=== PATIENT | male | born 1985 | race Caucasian/White ===

== ENCOUNTER 2017-05-06 01:08 | Emergency (ER) | payer MEDICAID ==
[~2017-05-06] VITALS: Ht 182.9 cm; Wt 95.3 kg
[2017-05-06 01:23] VITALS: BP 164/89
[2017-05-06] MEDS ORDERED: IBUPROFEN 800 MG TAB PO ONE (01:30)
[2017-05-06 01:42] LABS: Basophils # (auto) 0 uL; Basophils % (auto) 0.1 % (0.0-2.0); CONDITION Y; DEFINITIVE SEE PRINTOUT; Eosinophils # (auto) 0 uL; Hematocrit 41.3 % (41.0-53.0); Hemoglobin 13.3 g/dL (13.5-17.5); Lymphocytes # (auto) 0.6 uL; Mean Corpuscular Hemoglobin 25.7 pg (28.0-32.0); Mean Corpuscular Hgb Conc. 32.2 g/dL (32.0-36.0); Mean Corpuscular Volume 79.6 fL (80.0-100.0); Mean Platelet Volume 11.9 fL (7.4-10.4); Monocytes # (auto) 0.3 uL; Monocytes % (auto) 2.1 % (0.0-12.0); Neutrophils # (auto) 15.2 uL; Neutrophils % (auto) 93.8 % (37.0-80.0); Platelet Count (auto) 179 10^3/uL (140-450); Red Cell Distribution Width 14.4 % (11.6-16.0); SUSPECT SEE PRINTOUT; White Blood Cell 16.2 10^3/uL (4.4-10.8)
[2017-05-06 01:56] LABS: INR 1.05 (0.9-1.15); Partial Thromboplastin Time 28.6 sec (22.64-33.71); Prothrombin Time 11.4 sec (9.37-12.3)
[2017-05-06 02:01] LABS: Albumin 3.7 g/dL (3.4-5.0); Calcium 8.3 mg/dL (8.5-10.1); Potassium 3.7 mmol/L (3.5-5.1)
[2017-05-06 02:04] LABS: Bilirubin, Total 0.3 mg/dL (0.2-1.0); Total Protein 7.4 g/dL (6.4-8.2)
== END 2017-05-06 03:42 | disposition left against medical advice (07) ==
LOC: ER 01:12
DX: S61.202A Unspecified open wound of right middle finger without damage to nail, initial encounter (principal); S61.200A Unspecified open wound of right index finger without damage to nail, initial encounter; Z53.21 Procedure and treatment not carried out due to patient leaving prior to being seen by health care provider; W54.0XXA Bitten by dog, initial encounter; Y93.89 Activity, other specified; Y99.8 Other external cause status; Y92.89 Other specified places as the place of occurrence of the external cause
CPT/HCPCS: 36415; 80053; 85025; 85610; 85730

== ENCOUNTER 2017-05-11 05:32 | Emergency (ER) | payer MEDICAID ==
[~2017-05-11] VITALS: Ht 182.9 cm; Wt 97.5 kg
[2017-05-11 05:50] VITALS: BP 133/85
== END 2017-05-11 09:02 | disposition left against medical advice (07) ==
LOC: ER 05:32
DX: S61.451A Open bite of right hand, initial encounter (principal); Z53.21 Procedure and treatment not carried out due to patient leaving prior to being seen by health care provider; W54.0XXA Bitten by dog, initial encounter; Y93.89 Activity, other specified; Y92.89 Other specified places as the place of occurrence of the external cause; Y99.8 Other external cause status

== ENCOUNTER 2024-06-02 05:21 | Emergency (ER) | payer MEDICAID ==
[~2024-06-02] VITALS: Ht 182.9 cm; Wt 72.4 kg
[~2024-06-02 05:21] MED LIST: METF-370 PO
[2024-06-02 06:45] VITALS: TEMP 97.6
[2024-06-02] MEDS: SODIUM CHLORIDE 0.9% 1,000 ML IV ONE ×2 (07:00→07:38)
[2024-06-02 07:20] VITALS: BP 157/57; PULSE 89; RESP 16; O2SAT 95
[2024-06-02 07:26] LABS: Chloride 98 mmol/L (98-107); Potassium 4.2 mmol/L (3.5-5.1); Sodium 128 mmol/L (136-145)
[2024-06-02 07:27] LABS: Anion Gap 7 (5-15); Carbon Dioxide 23 mmol/L (20-30)
[2024-06-02 07:28] LABS: Calcium 9.2 mg/dL (8.7-10.4)
[2024-06-02 07:30] LABS: Eosinophils # (auto) 0 10 ^3/uL (0-0.8); Hemoglobin 12.8 g/dL (13.5-17.5); Mean Corpuscular Volume 79.4 fL (80.0-100.0); Monocytes # (auto) 0.5 10 ^3/uL (0-1.3); Monocytes % (auto) 7.1 % (0.0-12.0); Neutrophils # (auto) 5.2 10 ^3/uL (1.6-8.6); Nucleated Red Blood Cells % 0.1 %
[2024-06-02 07:32] LABS: BUN/Creatinine Ratio 8.7 (10.0-20.0); Blood Urea Nitrogen 13 mg/dL (9-23)
[2024-06-02 07:33] LABS: Basophils # (auto) 0 10 ^3/uL (0-0.2); Basophils % (auto) 0.6 % (0.0-2.0); Eosinophils % (auto) 0.5 % (0.0-7.0); Hematocrit 39.9 % (41.0-53.0); Lymphocytes # (auto) 1.6 10 ^3/uL (0.4-5.4); Lymphocytes % (auto) 21.1 % (10.0-50.0); Mean Corpuscular Hemoglobin 25.5 pg (28.0-32.0); Mean Corpuscular Hgb Conc. 32.1 g/dL (32.0-36.0); Neutrophils % (auto) 70.7 % (37.0-80.0); Red Blood Cells 5.02 10^6/uL (4.5-5.90); Red Cell Distribution Width 13.9 % (11.8-14.3); White Blood Cell 7.4 10^3/uL (4.4-10.8)
[2024-06-02 07:35] LABS: Glucose 692 mg/dL (74-106)
[2024-06-02] MEDS: InsuLIN REG 1unit/0.01ml Soln (100units/ml) IV ONE (07:38)
[2024-06-02 07:48] VITALS: PULSE 81
== END 2024-06-02 08:40 | disposition left against medical advice (07) ==
LOC: ER 05:21
DX: E11.65 Type 2 diabetes mellitus with hyperglycemia (principal); F17.210 Nicotine dependence, cigarettes, uncomplicated; F15.10 Other stimulant abuse, uncomplicated; Z59.00 Homelessness unspecified; Z88.0 Allergy status to penicillin
CPT/HCPCS: 36415; 80048; 82010; 82962; 85025; 96361; 96374; 99283; J1815; J7030

== ENCOUNTER 2024-06-04 22:52 | Emergency (ER) | payer MEDICAID ==
[~2024-06-04] VITALS: Ht 182.9 cm; Wt 160.0 kg
[2024-06-04 23:57] LABS: Basophils # (auto) 0.1 10 ^3/uL (0-0.2); Eosinophils # (auto) 0 10 ^3/uL (0-0.8); Mean Corpuscular Hemoglobin 25.6 pg (28.0-32.0); Monocytes # (auto) 0.7 10 ^3/uL (0-1.3); Neutrophils # (auto) 5.3 10 ^3/uL (1.6-8.6); Nucleated Red Blood Cells % 0.1 %; White Blood Cell 8.5 10^3/uL (4.4-10.8)
[2024-06-04 23:59] LABS: Basophils % (auto) 0.9 % (0.0-2.0); Eosinophils % (auto) 0.6 % (0.0-7.0); Hematocrit 44.9 % (41.0-53.0); Hemoglobin 14.6 g/dL (13.5-17.5); Lymphocytes # (auto) 2.4 10 ^3/uL (0.4-5.4); Lymphocytes % (auto) 28.6 % (10.0-50.0); Mean Corpuscular Hgb Conc. 32.5 g/dL (32.0-36.0); Mean Corpuscular Volume 78.6 fL (80.0-100.0); Monocytes % (auto) 7.6 % (0.0-12.0); Neutrophils % (auto) 62.3 % (37.0-80.0); Red Blood Cells 5.71 10^6/uL (4.5-5.90)
[2024-06-05 00:14] LABS: Alanine Aminotransferase 102 U/L (7-40); Albumin 4.4 g/dL (3.2-4.8); Alkaline Phosphatase 182 U/L (46-116); Anion Gap 5 (5-15); Aspartate Aminotransferase 49 U/L (13-40); Bilirubin, Total 0.3 mg/dL (0.2-1.0); Blood Urea Nitrogen 11 mg/dL (9-23); Calcium 9.8 mg/dL (8.7-10.4); Carbon Dioxide 27 mmol/L (20-30); Chloride 101 mmol/L (98-107); Potassium 4.3 mmol/L (3.5-5.1)
[2024-06-05 00:28] LABS: Sodium 133 mmol/L (136-145)
[2024-06-05 00:29] LABS: Glucose 437 mg/dL (74-106)
[2024-06-05 00:38] VITALS: BP 141/67; PULSE 98; RESP 18; TEMP 97.9; O2SAT 100
[2024-06-05 01:04] LABS: Urine Bacteria None Seen /hpf (None Seen)
[2024-06-05 01:13] LABS: Urine Blood Negative /uL (Negative); Urine Clarity Clear (Clear); Urine Color Colorless (Yellow); Urine Protein, UAD Negative (Negative); Urine Specific Gravity 1.031 (1.001-1.035); Urine Urobilinogen Normal (Negative); Urine WBC <1 /hpf (0 - 3)
[2024-06-05] MEDS ORDERED: SODIUM CHLORIDE 0.9% 1,000 ML IV ONE (02:00)
[2024-06-05] MEDS ORDERED: InsuLIN REG 1unit/0.01ml Soln (100units/ml) IV ONE (02:00)
== END 2024-06-05 02:14 | disposition left against medical advice (07) ==
LOC: ER 22:52
DX: E11.65 Type 2 diabetes mellitus with hyperglycemia (principal); F17.210 Nicotine dependence, cigarettes, uncomplicated; F15.10 Other stimulant abuse, uncomplicated; Z59.00 Homelessness unspecified
CPT/HCPCS: 36415; 71045; 80053; 81001; 82010; 82962; 85025

== ENCOUNTER 2024-11-09 23:26 | Emergency (ER) | payer SELFPAY ==
[~2024-11-09] VITALS: Ht 182.9 cm; Wt 71.2 kg
[2024-11-09 23:33] VITALS: BP 101/63; PULSE 112; RESP 18; O2SAT 99
[2024-11-10] MEDS ORDERED: INSULIN LISPRO (HUMAN) 100 UNITS/ML ML SC ONE
[2024-11-10] MEDS ORDERED: SODIUM CHLORIDE 0.9% 1,000 ML IV ONE
[2024-11-10 00:15] LABS: Urine Bacteria None Seen /hpf (None Seen)
[2024-11-10 00:53] LABS: Urine Blood Negative /uL (Negative); Urine Clarity Clear (Clear); Urine Color Colorless (Yellow); Urine Protein, UAD Negative (Negative); Urine Specific Gravity 1.041 (1.001-1.035); Urine Sperm PRESENT /hpf (None Seen); Urine Squamous Epithelial Cell None Seen /hpf (<5); Urine Urobilinogen Normal (Negative); Urine WBC 185 /hpf (0 - 3)
[2024-11-10] MEDS ORDERED: levoFLOXacin 750MG 150 ML IV ONE (01:30)
--- NOTE | 2024-11-10 01:31 | ED.PDOC ---
History of Present Illness HPI Comments This patient is a 39-year-old homeless male who arrives to the ED today for evaluation of blood sugar and lower belly concerns. Patient states he ran out of his diabetic medication and that his fingerstick today was over 600. Additionally, patient complains of some mild diffuse bilateral lower abdominal pain. Patient denies any fever nausea or vomiting. Patient has a history of methamphetamine abuse. Vital signs were stable on arrival. Chief Complaint: Hyperglycemia Time Seen by MD: 23:44 Reviewed Notes: Nurses Notes Allergies: Coded Allergies: Penicillins (Verified Allergy, Unknown, 05/06/17) Home Meds Active Scripts Metformin Hydrochloride (Metformin Hcl) 500 Mg Tab, 1 TAB PO BID, #60 TAB 3 Refills Prov:HYUN COOK MD 10/06/22 Information Source: Patient Mode of Arrival: Wheelchair Severity: Moderate Timing: Hours Duration: Since onset Prehospital treatment: None Medication Refill: Ran out of Medication, For: Diabetes Past Medical History PAST MEDICAL HISTORY: DM Surgical History: Denies all surgeries Family History Family History: Reviewed,noncontributory to illness, Unknown Social History Smoker: Cigarettes Alcohol: Denies ETOH Use Drugs: Methamphetamine Lives In: Homeless Constitutional: reports: weakness; denies: chills, diaphoresis, fatigue, fever, malaise, sweats, others EENTM: denies: blurred vision, double vision, ear bleeding, ear discharge, ear drainage, ear pain, ear ringing, eye pain, eye redness, hearing loss, mouth pain, mouth swelling, nasal discharge, nose bleeding, nose congestion, nose pain, photophobia, tearing, throat pain, throat swelling, voice changes, others Respiratory: denies: cough, hemoptysis, orthopnea, SOB at rest, shortness of breath, SOB with excertion, stridor, wheezing, others Cardiovascular: denies: chest pain, dizzy spells, diaphoresis, Dyspnea on exertion, edema, irregular heart beat, left arm pain, lightheadedness, palpitations, PND, syncope, others Gastrointestinal: reports: abdominal pain; denies: abdomen distended, blood streaked bowels, constipated, diarrhea, dysphagia, difficulty swallowing, hematemesis, melena, nausea, poor appetite, poor fluid intake, rectal bleeding, rectal pain, vomiting, others Genitourinary: denies: burning, dysuria, flank pain, frequency, hematuria, incontinence, penile discharge, penile sore, pain, testicle pain, testicle swelling, urgency, others Neurological: denies: dizziness, fainting, headache, left sided numbness, left sided weakness, numbness, paresthesia, pre-existing deficit, right sided numbness, right sided weakness, seizure, speech problems, tingling, tremors, w eakness, others Musculoskeletal: denies: back pain, gout, joint pain, joint swelling, muscle pain, muscle stiffness, neck pain, others Integumetry: denies: bruises, change in color, change in hair/nails, dryness, laceration, lesions, lumps, rash, wounds, others Allergic/Immunocompromised: denies: Difficulty Healing, Frequent Infections, Hives, Itching, others Hematologic/Lymphatic: denies: anemia, blood clots, easy bleeding, easy bruising, swollen glands, others Endocrine: denies: excessive hunger, excessive sweating, excessive thirst, excessive urination, flushing, intolerance to cold, intolerance to heat, unexplained weight gain, unexplained weight loss, others Psychiatric: denies: anxiety, bipolar disorder, depression, hopeless, panic disorder, schizophrenia, sleepless, suicidal, others Physical Exam Exam Comments Patient is not well kempt and dirty. General Appearance: Mild Distress (Moderate distress due to abdominal pain concerns.), Normal HEENT: Normal ENT Inspection, Pharynx Normal, TMs Normal Neck: Full Range of Motion, Non-Tender, Normal, Normal Inspection Respiratory: Chest Non-Tender, Lungs Clear, No Accessory Muscle Use, No Respiratory Distress, Normal Breath Sounds Cardiovascular: No Edema, No JVD, No Murmur, No Gallop, Normal Peripheral Pulses, Regular Rate/Rhythm Breast Exam: Deferred Gastrointestinal: Other (Diffuse bilateral lower abdominal/pelvic tenderness to palpation. No pulsatile masses.) Genitalia: Deferred Pelvic: Deferred Rectal: Deferred Extremities: No calf tenderness, Normal capillary refill, Normal inspection, Normal range of motion, Non-tender, No pedal edema Neurologic: Alert, No Motor Deficits, Normal Affect, Normal Mood, No Sensory Deficits Cerebellar Function: Normal Reflexes: Normal Skin: Dry, Normal Color, Warm Lymphatic: No Adenopathy Was a procedure done? Was a procedure done?: No Differential Dx Considerations may include: Hyperglycemia, UTI, failure to thrive, medication noncompliance X-Ray, Labs, Meds, VS Vital Signs Date Time Temp Pulse Resp B/P (MAP) Pulse Ox O2 Delivery O2 Flow Rate FiO2 11/09/24 23:33 97.6 112 18 101/63 (76) 99 Lab Test 11/10/24 00:00 Range/Units Urine Color Colorless Yellow Urine Clarity Clear Clear Urine pH 5.0 5.0-9.0 Urine Specific Caroline 1.041 H 1.001-1.035 Urine Protein Negative Negative Urine Ketones Negative Negative Urine Blood Negative Negative /uL Urine Nitrite Negative Negative Urine Bilirubin Negative Negative Urine Urobilinogen Normal Negative mg/dL Urine Leukocyte Esterase 2+ Negative /uL Urine RBC 7 0 - 3 /hpf Urine WBC 185 0 - 3 /hpf Urine Squamous Epithelial Cells None seen <5 /hpf Urine Bacteria None seen None Seen /hpf Urine Sperm Present None Seen /hpf Urine Glucose 4+ H Normal mg/dL X-Ray, Labs, Meds, VS Comment All studies performed in the ED today were evaluated by me personally. Urinalysis revealed a significant urinary tract infection and patient's fingerstick blood glucose was over 400 on two occasions. Patient will be admitted for diabetic management as well as establishment of proper medication protocol. Additionally, patient will receive IV antibiotics to address his urinary tract infection. Time of 1ST Reevaluation: 01:30 Reevaluation 1ST: Improved Consultation: PCP Patient Education/Counseling: Diagnosis, Treatment Family Education/Counseling: Diagnosis, Treatment Departure 1 Departure Time of Disposition: 01:30 Impression: Primary Impression: Hyperglycemia due to diabetes mellitus Additional Impressions: Urinary tract infection Noncompliance with medication regimen Disposition: ADMITTED INPATIENT Condition: Fair Discharged With: Self Critical Care Note Critical Care Time?: No Stability Stability form required: No Heart Score Heart Score: Heart Score Response (Comments) Value History N/A 0 EKG N/A 0 Age N/A 0 Risk Factors N/A 0 Troponin N/A 0 Total 0 TETE GALLEGOS PAC Nov 10, 2024 01:31
== END 2024-11-10 03:43 | disposition left against medical advice (07) ==
LOC: ER 23:26
DX: E11.65 Type 2 diabetes mellitus with hyperglycemia (principal); N39.0 Urinary tract infection, site not specified; F17.210 Nicotine dependence, cigarettes, uncomplicated; F15.90 Other stimulant use, unspecified, uncomplicated; Z88.0 Allergy status to penicillin; Z59.00 Homelessness unspecified
CPT/HCPCS: 81001; 82962

== ENCOUNTER 2025-10-26 17:23 | Emergency (ER) | payer MEDICAID ==
[~2025-10-26] VITALS: Ht 182.9 cm; Wt 72.2 kg
[2025-10-26 17:25] VITALS: BP 131/85; PULSE 111; RESP 18; TEMP 97.2; O2SAT 99
== END 2025-10-26 19:14 | disposition left against medical advice (07) ==
LOC: ER 17:23
DX: R20.0 Anesthesia of skin (principal); Z53.21 Procedure and treatment not carried out due to patient leaving prior to being seen by health care provider